=== PATIENT | female | born 1970 | race Caucasian/White ===

== ENCOUNTER 2017-10-04 14:53 | Emergency (ER) | payer OTHER ==
[~2017-10-04] VITALS: Ht 165.1 cm; Wt 63.0 kg
[2017-10-04] MEDS ORDERED: KETOROLAC 60MG/2ML VIAL IM ONE (17:15)
[2017-10-04 18:44] VITALS: BP 118/88
== END 2017-10-04 19:37 | disposition home or self-care (01) ==
LOC: ER 15:12
DX: S00.33XA Contusion of nose, initial encounter (principal); S20.219A Contusion of unspecified front wall of thorax, initial encounter; J32.9 Chronic sinusitis, unspecified; E04.1 Nontoxic single thyroid nodule; I10 Essential (primary) hypertension; J34.2 Deviated nasal septum; Z86.718 Personal history of other venous thrombosis and embolism; V49.88XA Car occupant (driver) (passenger) injured in other specified transport accidents, initial encounter; Y93.89 Activity, other specified; Y99.8 Other external cause status; Y92.410 Unspecified street and highway as the place of occurrence of the external cause
CPT/HCPCS: 70450; 70486; 71045; 81025; 96372; 99284; J1885